=== PATIENT | male | born 1985 | race Caucasian/White ===

== ENCOUNTER 2020-04-22 19:09 | Emergency (ER) | payer MEDICARE ==
[~2020-04-22] VITALS: Ht 185.4 cm; Wt 86.9 kg
[2020-04-22 19:09] VITALS: BP 154/94
--- NOTE | 2020-04-22 19:21 | PHYS DOC ---
General Adult EDM: Chief Complaint: WOUND CHECK HPI: HPI: Patient is a 35-year-old male brought in by PD for medical clearance.. Was patient was arrested and complaining of leg wounds. He was initially cleared by EMS and the wounds were dressed. When taken to the correction he said he had to be medically screened in the emergency department. Patient states he is had the wounds for about a week, put dressings on them yesterday. Thinks they were "spider bites. No systemic complaints. No prior injury or surgery to right lower extremity. Review of Systems: Review of Systems: Constitutional: Denies fever or chills Eyes: Denies change in visual acuity HENT: Denies nasal congestion or sore throat Respiratory: Denies cough or shortness of breath Cardiovascular: Denies chest pain or edema GI: Denies abdominal pain, nausea, vomiting, bloody stools or diarrhea : Denies dysuria Musculoskeletal: Denies back pain or joint pain Integument: Denies rash, bug bites Neurologic: Denies headache, focal weakness or sensory changes Endocrine: Denies polyuria or polydipsia Lymphatic: Denies swollen glands Psychiatric: Denies depression or anxiety Heart Score: Risk Factors: Risk Factors: DM, Current or recent (<one month) smoker, HTN, HLP, family history of CAD, obesity. Risk Scores: Score 0 - 3: 2.5% MACE over next 6 weeks - Discharge Home Score 4 - 6: 20.3% MACE over next 6 weeks - Admit for Clinical Observation Score 7 - 10: 72.7% MACE over next 6 weeks - Early Invasive Strategies Allergies: Allergies: Allergies Coded Allergies Type Severity Reaction Last Updated Verified Penicillins Allergy Unknown 04/22/20 Yes diphenhydramine Allergy Unknown 04/22/20 Yes fentanyl Allergy Unknown 04/22/20 Yes haloperidol Allergy Unknown 04/22/20 Yes Physical Exam: PE: Constitutional: Well developed, well nourished, no acute distress, non-toxic appearance. [] HENT: Normocephalic, atraumatic, bilateral external ears normal, oropharynx moist, no oral exudates, nose normal. [] Eyes: PERRLA, EOMI, conjunctiva normal, no discharge. [] Neck: Normal range of motion, no tenderness, supple, no stridor. [] Cardiovascular:Heart rate regular rhythm, no murmur [] Lungs & Thorax: Bilateral breath sounds clear to auscultation [] Abdomen: Bowel sounds normal, soft, no tenderness, no masses, no pulsatile masses. [] Skin: Warm, dry, no erythema, no rash. [] Few scattered scabbed lesions to right lower extremity, no fluctuance, mild surrounding erythema, no drainage. Back: No tenderness, no CVA tenderness. [] Extremities: No tenderness, no cyanosis, no clubbing, ROM intact, no edema. [] Neurologic: Alert and oriented X 3, normal motor function, normal sensory function, no focal deficits noted. [] Psychologic: Affect normal, judgement normal, mood normal. [] EKG: EKG: [] Radiology/Procedures: Radiology/Procedures: [] Course & Med Decision Making: Course & Med Decision Making No signs of significant infection, antibiotic ointment placed and wounds are dressed. Medically cleared to return to PD custody [] Dragon Disclaimer: Dragon Disclaimer: This electronic medical record was generated, in whole or in part, using a voice recognition dictation system. Departure Departure: Impression: Primary Impression: Leg wound, right Disposition: 01 DC HOME SELF CARE/HOMELESS Condition: STABLE Referrals: [facility], [facility] Patient Instructions: Wound Care, [id number] TAE ROSEN MD Apr 22, 2020 19:21
[2020-04-22] MEDS ORDERED: BACITRACIN ZINC TOPICAL OINT PACKET. TP ONE (19:30)
== END 2020-04-22 19:38 | disposition home or self-care (01) ==
LOC: ER 19:09
DX: S80.921A Unspecified superficial injury of right lower leg, initial encounter (principal); Z88.0 Allergy status to penicillin; Z88.8 Allergy status to other drugs, medicaments and biological substances; X58.XXXA Exposure to other specified factors, initial encounter; Y93.89 Activity, other specified; Y92.89 Other specified places as the place of occurrence of the external cause; Y99.8 Other external cause status
CPT/HCPCS: 99282